=== PATIENT | female | born 2000 | race African-American/Black ===

== ENCOUNTER 2022-01-05 17:00 | Emergency (ER) | payer SELFPAY ==
[~2022-01-05] VITALS: Ht 157.5 cm; Wt 52.0 kg
[2022-01-05 17:03] VITALS: BP 130/80
== END 2022-01-05 19:31 | disposition left against medical advice (07) ==
LOC: ER 17:00
DX: Z53.21 Procedure and treatment not carried out due to patient leaving prior to being seen by health care provider (principal)

== ENCOUNTER 2022-01-05 20:00 | Emergency (ER) | payer MEDICAID ==
[~2022-01-05] VITALS: Ht 157.5 cm; Wt 55.4 kg
[2022-01-05 20:35] VITALS: BP 115/82
== END 2022-01-06 00:36 | disposition left against medical advice (07) ==
LOC: ER 20:00
DX: Z53.21 Procedure and treatment not carried out due to patient leaving prior to being seen by health care provider (principal)
CPT/HCPCS: 93005

== ENCOUNTER 2022-01-06 00:56 | Emergency (ER) | payer MEDICAID ==
[~2022-01-06] VITALS: Ht 157.5 cm; Wt 55.9 kg
[2022-01-06 06:00] VITALS: BP 118/80
== END 2022-01-06 06:52 | disposition home or self-care (01) ==
LOC: ER 00:56
DX: R06.00 Dyspnea, unspecified (principal)
CPT/HCPCS: 99281

== ENCOUNTER 2022-01-06 09:26 | Emergency (ER) | payer MEDICAID ==
[~2022-01-06] VITALS: Ht 157.5 cm; Wt 53.0 kg
[2022-01-06 10:15] VITALS: BP 116/78
[2022-01-06] MEDS ORDERED: IBUPROFEN 400MG TABLET PO ONE (10:15)
== END 2022-01-06 11:41 | disposition home or self-care (01) ==
LOC: ER 09:26
DX: G89.29 Other chronic pain (principal); M25.572 Pain in left ankle and joints of left foot; M25.571 Pain in right ankle and joints of right foot
CPT/HCPCS: 73610; 81025; 99283

== ENCOUNTER 2022-02-12 21:06 | Emergency (ER) | payer MEDICAID ==
[~2022-02-12] VITALS: Ht 167.6 cm; Wt 73.0 kg
[2022-02-12 21:15] VITALS: BP 134/78
[2022-02-12] MEDS ORDERED: TETANUS, DIPHTHERIA, PERTUSSIS VAC/PF 0.5ML (>10YR OLD) IM ONE (22:30)
[2022-02-12] MEDS ORDERED: ACETAMINOPHEN 325MG TABLET PO ONE (22:30)
[2022-02-12] MEDS ORDERED: LIDOCAINE HCL 1% 10 MG/ML 10ML VIAL INJ SCH (22:30)
[2022-02-12] MEDS ORDERED: BACITRACIN ZINC OINT UDPKT TOP ONE (22:30)
[2022-02-12] MEDS ORDERED: LIDOCAINE HCL/EPINEPHRINE 1%-EPI 1:100,000 20 ML VIAL INFIL ONE (22:30)
[2022-02-12] MEDS ORDERED: BO1 TP (22:49)
== END 2022-02-12 23:25 | disposition home or self-care (01) ==
LOC: ER 21:11
DX: S71.112A Laceration without foreign body, left thigh, initial encounter (principal); W18.39XA Other fall on same level, initial encounter; Y93.89 Activity, other specified; Y92.89 Other specified places as the place of occurrence of the external cause; Y99.8 Other external cause status
CPT/HCPCS: 12002; 90471; 90715; 99283; J3490

== ENCOUNTER 2023-11-21 05:14 | Emergency (ER) | payer MEDICAID ==
[~2023-11-21] VITALS: Ht 160 cm; Wt 60.0 kg
[~2023-11-21 05:14] MED LIST: BO1 TP
[2023-11-21 05:26] VITALS: O2SAT 98
[2023-11-21 05:57] LABS: CHLORIDE 110 mEq/L (98-107); POTASSIUM 3.6 mEq/L (3.5-5.1); SODIUM 137 mEq/L (136-145)
[2023-11-21 05:58] LABS: CARBON DIOXIDE 20 mEq/L (21-32)
[2023-11-21 05:59] LABS: CALCIUM 9.1 mg/dL (8.7-10.4)
[2023-11-21 06:02] LABS: INR 0.9; PROTHROMBIN TIME 10.1 sec (9.6-11.0)
[2023-11-21 06:03] LABS: BASOPHILS % 0.3 % (0.0-2.0); CREATININE 0.7 mg/dL (0.6-1.0); EOSINOPHILS % 0.2 % (0.0-5.0); GLUCOSE 101 mg/dL (70-105); HEMATOCRIT. 35.2 % (36.0-48.0); HEMOGLOBIN. 11.7 g/dL (12.0-16.0); LYMPHOCYTES % 11.2 % (20.0-50.0); MEAN CORPUSCULAR HEMOGLOBIN 32.9 pg (28.0-32.0); MEAN CORPUSCULAR HGB CONC 33.1 g/dL (31.0-37.0); MEAN CORPUSCULAR VOLUME 99.4 fL (81.0-99.0); MEAN PLATELET VOLUME 9.4 fl (7.4-10.4); MONOCYTES % 8.5 % (2.0-8.0); NEUTROPHILS % 79.8 % (40.0-76.0); PLATELET 210 x1000/uL (130-400); RED BLOOD CELL COUNT 3.54 mill/uL (4.2-5.4); RED CELL DISTRIBUTION WIDTH 14.4 % (11.6-14.6); WHITE BLOOD COUNT 13.2 x1000/uL (4.5-11.0)
[2023-11-21 06:04] LABS: UREA NITROGEN BLOOD 6 mg/dL (9-23)
[2023-11-21] MEDS ORDERED: LIDOCAINE HCL/PF 1% 10 MG/ML 5ML VIAL INFIL ONE (07:15)
[2023-11-21 07:20] LABS: HCG SCREEN POSITIVE
[2023-11-21] MEDS: OXYTOCIN 30 UNITS/500ML NS 500 ML IV ONE (07:40)
[2023-11-21 07:52] LABS: HEMATOCRIT. 31.5 % (36.0-48.0); HEMOGLOBIN. 10.5 g/dL (12.0-16.0); MEAN CORPUSCULAR HEMOGLOBIN 33.1 pg (28.0-32.0); MEAN CORPUSCULAR HGB CONC 33.3 g/dL (31.0-37.0); MEAN CORPUSCULAR VOLUME 99.6 fL (81.0-99.0); MEAN PLATELET VOLUME 9.3 fl (7.4-10.4); PLATELET 183 x1000/uL (130-400); RED BLOOD CELL COUNT 3.17 mill/uL (4.2-5.4); RED CELL DISTRIBUTION WIDTH 14.6 % (11.6-14.6); WHITE BLOOD COUNT 13.2 x1000/uL (4.5-11.0)
[2023-11-21 07:55] LABS: CARBON DIOXIDE 20 mEq/L (21-32); CHLORIDE 112 mEq/L (98-107); POTASSIUM 3.6 mEq/L (3.5-5.1); SODIUM 138 mEq/L (136-145)
[2023-11-21 07:56] LABS: CALCIUM 8.3 mg/dL (8.7-10.4)
[2023-11-21 07:59] LABS: DIFFERENTIAL COMMENT 1
[2023-11-21 08:00] LABS: CREATININE 0.6 mg/dL (0.6-1.0); GLUCOSE 106 mg/dL (70-105)
[2023-11-21 08:01] LABS: UREA NITROGEN BLOOD 5 mg/dL (9-23)
[2023-11-21 08:02] LABS: ALANINE AMINOTRANSFERASE 9 IU/L (10-49); ASPARTATE AMINOTRANSFERASE 17 IU/L (<34)
[2023-11-21 08:03] LABS: ALBUMIN 3.8 g/dL (3.2-4.8); BILIRUBIN TOTAL 0.3 mg/dL (0.1-1.0)
[2023-11-21 08:04] VITALS: BP 122/81; PULSE 70; RESP 16; TEMP 98.8
[2023-11-21 09:25] LABS: PLATELET ESTIMATE NORMAL
== END 2023-11-21 08:32 | disposition short-term general hospital (02) ==
LOC: ER 05:14
DX: O80 Encounter for full-term uncomplicated delivery (principal); Z3A.33 33 weeks gestation of pregnancy; Z85.9 Personal history of malignant neoplasm, unspecified
CPT/HCPCS: 36415; 76805; 80048; 80053; 84703; 85025; 86592; 86705; 96365; 99291; 99292; J2590

== ENCOUNTER 2024-04-20 14:13 | Emergency (ER) | payer MEDICAID ==
[~2024-04-20] VITALS: Ht 162.6 cm; Wt 57.0 kg
[2024-04-20 14:14] VITALS: BP 84/44; PULSE 82; RESP 16; TEMP 98.4; O2SAT 98
[2024-04-20] MEDS: ACETAMINOPHEN 325MG TABLET PO ONE (15:29)
== END 2024-04-20 15:31 | disposition home or self-care (01) ==
LOC: ER 14:13
DX: S89.92XA Unspecified injury of left lower leg, initial encounter (principal); I10 Essential (primary) hypertension; W10.9XXA Fall (on) (from) unspecified stairs and steps, initial encounter; Y93.89 Activity, other specified; Y92.89 Other specified places as the place of occurrence of the external cause; Y99.8 Other external cause status
CPT/HCPCS: 73562; 99283; Z7610; L1830